=== PATIENT | female | born 1985 | race Caucasian/White ===

== ENCOUNTER 2017-04-05 22:00 | Emergency (ER) | payer SELFPAY ==
[2017-04-05 22:24] VITALS: BP 121/62; TEMP 98.2
[2017-04-05] MEDS ORDERED: VIVLODEX5 MG PO (22:32)
[2017-04-05] MEDS ORDERED: ALEVE 220MG220 MG PO (22:32)
[2017-04-05 23:50] VITALS: PULSE 81
== END 2017-04-05 23:50 | disposition home or self-care (01) ==
LOC: COL.ER 22:00
DX: J02.9 Acute pharyngitis, unspecified (principal); N94.6 Dysmenorrhea, unspecified; Z77.22 Contact with and (suspected) exposure to environmental tobacco smoke (acute) (chronic)

== ENCOUNTER 2017-06-01 16:39 | Emergency (ER) | payer SELFPAY ==
[~2017-06-01] VITALS: Ht 167.6 cm; Wt 70.5 kg
[~2017-06-01 16:39] MED LIST: ALEVE 220MG220 MG PO; VIVLODEX5 MG PO
[2017-06-01 16:46] VITALS: TEMP 98.2
[2017-06-01 17:22] LABS: BASO % 0.2 % (0.0-2.0); EOS % 0.1 % (0-4.0); GRAN # 6.9 (1.4-6.5); HEMOGLOBIN 12.7 g/dl (12.5-16.0); LYMPH # 1.8 (1.2-3.4); LYMPH % 19.3 % (20.0-51.0); MEAN CELL VOLUME 83 fl (80.0-100.0); MEAN CORPUSCULAR HEMOGLOBIN 29 pg (27.0-31.0); MEAN CORPUSCULAR HGB CONC 35 g/dl (33.0-37.0); MEAN PLATELET VOLUME 10.2 fl (7.4-10.4); MONO # 0.7 (0.1-0.6); MONO % 7.1 % (1.7-9.3); PLATELET COUNT 300 K/mm3 (130-400); RED BLOOD COUNT 4.44 M/mm3 (4.10-5.30); REDCELL DISTRIBUTION WIDTH-CV 12.2 % (11.5-14.5); WHITE BLOOD COUNT 9.5 K/mm3 (4.8-10.8)
[2017-06-01 17:31] LABS: HEMATOCRIT 36.8 % (37.0-47.0)
[2017-06-01 17:34] LABS: ADJUSTED CALCIUM 9.6 mg/dL (8.4-10.2); CALCIUM 10.4 mg/dL (8.4-10.2); CREATININE, serum 1.04 mg/dL (0.52-1.25); POTASSIUM 3.4 mmol/L (3.4-5.0)
[2017-06-01 18:45] VITALS: BP 112/69; PULSE 89
== END 2017-06-01 18:47 | disposition home or self-care (01) ==
LOC: COL.ER 16:39
PROVIDERS: Emergency Medicine
DX: S09.90XA Unspecified injury of head, initial encounter (principal); S20.211A Contusion of right front wall of thorax, initial encounter; R11.10 Vomiting, unspecified; Z98.51 Tubal ligation status; Z98.890 Other specified postprocedural states; W10.9XXA Fall (on) (from) unspecified stairs and steps, initial encounter; Y92.009 Unspecified place in unspecified non-institutional (private) residence as the place of occurrence of the external cause
CPT/HCPCS: J1170; J2550; J7030

== ENCOUNTER 2017-06-17 16:18 | Emergency (ER) | payer SELFPAY ==
[~2017-06-17] VITALS: Ht 167.6 cm; Wt 70.5 kg
[2017-06-17 16:20] VITALS: BP 125/63; PULSE 82; TEMP 98.3
== END 2017-06-17 17:44 | disposition home or self-care (01) ==
LOC: COL.ER 16:18
DX: S09.90XA Unspecified injury of head, initial encounter (principal); S16.1XXA Strain of muscle, fascia and tendon at neck level, initial encounter; S62.663A Nondisplaced fracture of distal phalanx of left middle finger, initial encounter for closed fracture; S00.83XA Contusion of other part of head, initial encounter; Y04.2XXA Assault by strike against or bumped into by another person, initial encounter; W10.8XXA Fall (on) (from) other stairs and steps, initial encounter; Y92.008 Other place in unspecified non-institutional (private) residence as the place of occurrence of the external cause

== ENCOUNTER 2017-10-14 01:11 | Emergency (ER) | payer SELFPAY ==
[~2017-10-14] VITALS: Ht 167.6 cm; Wt 61.4 kg
[~2017-10-14 01:11] MED LIST changes: +PREDNISONE20 MG PO
[2017-10-14 01:14] VITALS: BP 136/83; TEMP 98.7
[2017-10-14] MEDS ORDERED: CRUTCHES MC (02:07)
[2017-10-14 02:21] VITALS: PULSE 67
== END 2017-10-14 02:25 | disposition home or self-care (01) ==
LOC: COL.ER 01:11
DX: S86.012A Strain of left Achilles tendon, initial encounter (principal); J45.909 Unspecified asthma, uncomplicated; Z87.891 Personal history of nicotine dependence; X50.3XXA Overexertion from repetitive movements, initial encounter; Y92.410 Unspecified street and highway as the place of occurrence of the external cause

== ENCOUNTER 2017-11-16 09:33 | Emergency (ER) | payer SELFPAY ==
[~2017-11-16] VITALS: Ht 167.6 cm; Wt 60.9 kg
[~2017-11-16 09:33] MED LIST changes: +CRUTCHES MC
[2017-11-16 09:38] VITALS: BP 132/82; TEMP 98.5
[2017-11-16 11:58] VITALS: PULSE 89
== END 2017-11-16 12:01 | disposition home or self-care (01) ==
LOC: COL.ER 09:33
DX: S62.622A Displaced fracture of middle phalanx of right middle finger, initial encounter for closed fracture (principal); S00.03XA Contusion of scalp, initial encounter; F17.200 Nicotine dependence, unspecified, uncomplicated; Y04.2XXA Assault by strike against or bumped into by another person, initial encounter